=== PATIENT | female | born 1980 | race African-American/Black ===

== ENCOUNTER 2019-08-02 18:03 | Emergency (ER) | payer SELFPAY ==
[~2019-08-02] VITALS: Ht 154.9 cm; Wt 100.0 kg
[2019-08-02 18:17] VITALS: BP 130/76; Ht 154.9 cm; Wt 100.0 kg
[2019-08-02] MEDS ORDERED: GLUCOPHAGE1000 MG PO ×2 (18:18→19:25)
[2019-08-02] MEDS ORDERED: INSULIN SQ (18:19)
[2019-08-02] MEDS ORDERED: HUMULIN 70100 UNIT/1 (18:20)
[2019-08-02] MEDS ORDERED: HUMULIN 70100 UNIT/1 SC (19:25)
== END 2019-08-02 19:39 | disposition home or self-care (01) ==
LOC: D.ER 18:03
DX: E11.9 Type 2 diabetes mellitus without complications (principal)

== ENCOUNTER 2019-08-11 10:26 | Emergency (ER) | payer MEDICAID ==
[~2019-08-11] VITALS: Ht 154.9 cm; Wt 100.0 kg
[~2019-08-11 10:26] MED LIST: GLUCOPHAGE1000 MG PO; HUMULIN 70100 UNIT/1; HUMULIN 70100 UNIT/1 SC; INSULIN SQ
[2019-08-11 10:28] VITALS: BP 144/74; Ht 154.9 cm; Wt 100.0 kg
[2019-08-11 11:34] LABS: BASOPHILS 0.1 % (0-2); HEMATOCRIT 37.7 % (36.0-48.0); HEMOGLOBIN 11.6 g/dL (12-16); IMMATURE GRANULOCYTES 0.6 % (0-5); LYMPHOCYTES 14.8 % (15-50); MCH 23.3 pg (26.0-34.0); MCHC 30.8 g/dL (31.0-37.0); MCV 75.9 fL (80.0-100.0); MEAN PLATELET VOLUME 9.3 fL (7.4-10.4); MONOCYTES 3.9 % (2-11); NEUTROPHILS 70.6 % (40-80); PLATELET COUNT 397 10x3/uL (130-400); RBC 4.97 10x6/uL (4.00-5.40); RDW 17.1 % (11.5-14.5); WBC 9.5 10x3/uL (4.8-10.8)
[2019-08-11 11:46] LABS: CALC OSMOLALITY 274 mosm/kg (275-300); CALCIUM 9.5 mg/dL (8.5-10.1); CARBON DIOXIDE 26.1 mmol/L (21.0-32.0); CHLORIDE - SERUM 100 mmol/L (98-107); CREATININE - SERUM 0.7 mg/dL (0.6-1.3); GLUCOSE 218 mg/dL (74-106); POTASSIUM - SERUM 4.1 mmol/L (3.5-5.1); SODIUM 135 mmol/L (136-145); UREA NITROGEN 8 mg/dL (7-18); eGFR NON AFRICAN AMERICAN > 90 mL/min (90-120)
[2019-08-11 11:55] LABS: ALBUMIN 4.2 g/dL (3.4-5.0); ALKALINE PHOSPHATASE 208 U/L (46-116); ALT (SGPT) 25 U/L (10-68); BILIRUBIN - TOTAL 0.45 mg/dL (0.2-1.3); PRO BNP 13 pg/mL (0-125); PROTEIN - SERUM 8.5 g/dL (6.4-8.2)
[2019-08-11] MEDS ORDERED: HUMULIN R100 U/ML SC (12:32)
== END 2019-08-11 12:50 | disposition home or self-care (01) ==
LOC: D.ER 10:26
PROVIDERS: Family Medicine
DX: M79.605 Pain in left leg (principal); M25.472 Effusion, left ankle; E11.9 Type 2 diabetes mellitus without complications

== ENCOUNTER 2019-09-03 15:05 | Inpatient (IN) | payer SELFPAY ==
[~2019-09-03] VITALS: Ht 154.9 cm; Wt 101.8 kg
[~2019-09-03 15:05] MED LIST changes: +HUMULIN R100 U/ML SC
--- NOTE | 2019-09-03 15:19 | NUR ---
FSBS= 390 MG/SL
[2019-09-03 15:47] LABS: BASOPHILS 0.1 % (0-2); EOSINOPHILS 9.2 % (0-7); HEMATOCRIT 39.2 % (36.0-48.0); HEMOGLOBIN 12.1 g/dL (12-16); IMMATURE GRANULOCYTES 0.8 % (0-5); LYMPHOCYTES 8.2 % (15-50); MCH 23.4 pg (26.0-34.0); MCHC 30.9 g/dL (31.0-37.0); MCV 75.7 fL (80.0-100.0); MEAN PLATELET VOLUME 10.1 fL (7.4-10.4); MONOCYTES 5.9 % (2-11); NEUTROPHILS 75.8 % (40-80); PLATELET COUNT 391 10x3/uL (130-400); RBC 5.18 10x6/uL (4.00-5.40); RDW 17.2 % (11.5-14.5); WBC 14.3 10x3/uL (4.8-10.8)
--- NOTE | 2019-09-03 16:56 | NUR ---
URINE SPECIMEN OBTAINED, LABELED AT BS AND SENT TO LAB
[2019-09-03 17:24] LABS: APPEARANCE CLEAR (CLEAR); COLOR YELLOW (YELLOW)
[2019-09-03 17:32] LABS: SPECIFIC GRAVITY 1.025 (1.005-1.020)
[2019-09-03 17:37] LABS: BILIRUBIN NEGATIVE (NEGATIVE); GLUCOSE 1000 mg/dL (NEGATIVE); KETONE LARGE mg/dL (NEGATIVE); NITRITE NEGATIVE (NEGATIVE); PROTEIN TRACE mg/dL (NEGATIVE); UROBILINOGEN NORMAL (NORMAL)
--- NOTE | 2019-09-03 18:11 | NUR ---
RT HERE TO OBTAIN ABG'S
--- NOTE | 2019-09-03 18:36 | NUR ---
PT SITTING IN ROOM. NO DISTRESS NOTED. DENIES PAIN OR NEEDS AT THIS TIME.
[2019-09-03 19:13] LABS: CALC OSMOLALITY 279 mosm/kg (275-300); CALCIUM 9.8 mg/dL (8.5-10.1); CARBON DIOXIDE 10.9 mmol/L (21.0-32.0); CHLORIDE - SERUM 100 mmol/L (98-107); CREATININE - SERUM 0.8 mg/dL (0.6-1.3); POTASSIUM - SERUM 4.4 mmol/L (3.5-5.1); SODIUM 133 mmol/L (136-145); UREA NITROGEN 7 mg/dL (7-18); eGFR NON AFRICAN AMERICAN 85 mL/min (90-120)
[2019-09-03 19:15] LABS: GLUCOSE 382 mg/dL (74-106)
[2019-09-03 19:19] LABS: ALKALINE PHOSPHATASE 188 U/L (46-116); ALT (SGPT) 29 U/L (10-68); BILIRUBIN - TOTAL 0.59 mg/dL (0.2-1.3); PROTEIN - SERUM 8.9 g/dL (6.4-8.2)
--- NOTE | 2019-09-03 19:42 | NUR ---
PT PROVIDED WITH WATER.
[2019-09-03 20:21] LABS: CALC OSMOLALITY 284 mosm/kg (275-300); CALCIUM 9.6 mg/dL (8.5-10.1); CARBON DIOXIDE 10.2 mmol/L (21.0-32.0); CHLORIDE - SERUM 102 mmol/L (98-107); CREATININE - SERUM 0.7 mg/dL (0.6-1.3); GLUCOSE 360 mg/dL (74-106); POTASSIUM - SERUM 4.8 mmol/L (3.5-5.1); SODIUM 136 mmol/L (136-145); UREA NITROGEN 7 mg/dL (7-18); eGFR NON AFRICAN AMERICAN > 90 mL/min (90-120)
--- NOTE | 2019-09-03 20:39 | NUR ---
REPORT CALLED TO SERENA GALVAN. ROOM STILL DIRTY. NURSE TO CALL WHEN ROOM IS READY FOR PATIENT.
--- NOTE | 2019-09-03 21:50 | NUR ---
PT UP TO RESTROOM.
--- NOTE | 2019-09-03 21:59 | NUR ---
ICU CALLED, ROOM IS CLEAN AND READY FOR PT.
--- NOTE | 2019-09-03 22:30 | NUR ---
PT ARRIVED TO UNIT. CONNECTED TO ICU MONITOR. VSS. NO VISIBLE SIGNS OF DISTRESS NOTED. WILL CONTINUE TO MONITOR
[2019-09-03 23:00] VITALS: BP 129/85
--- NOTE | 2019-09-03 23:30 | NUR ---
ADMISSION ASSESSMENT COMPLETED. INSULIN DRIP STARTED AND FLOW SHEET STARTED. NO COMPLAINTS NOTED AT THIS TIME. VSS. WILL CONTINUE TO MONITOR
[2019-09-03 23:37] VITALS: BP 142/88; BMI 40.5
[2019-09-04] VITALS (25 sets, daily range): BP systolic 112–144; BP diastolic 32–97; Ht 154.9 cm; Wt 101.8 kg
--- NOTE | 2019-09-04 01:00 | NUR ---
PT RESTING IN BED. ATTEMPTING TO SLEEP. NO VISIBLE SIGNS OF DISTRESS NOTED. VSS. WILL CONTINUE TO MONITOR
--- NOTE | 2019-09-04 03:00 | NUR ---
PT RESTING IN BED. REASSESSMENT COMPLETED. NO COMPLAINTS NOTED AT THIS TIME. VSS. PT ON INSULIN DRIP TOLERATING WELL. WILL CONTINUE TO MONITOR
[2019-09-04 04:46] LABS: CHLORIDE - SERUM 108 mmol/L (98-107); CREATININE - SERUM 0.7 mg/dL (0.6-1.3); SODIUM 141 mmol/L (136-145); eGFR NON AFRICAN AMERICAN > 90 mL/min (90-120)
[2019-09-04 04:55] LABS: CALC OSMOLALITY 278 mosm/kg (275-300); CARBON DIOXIDE 18.7 mmol/L (21.0-32.0); GLUCOSE 115 mg/dL (74-106); POTASSIUM - SERUM 3.4 mmol/L (3.5-5.1); UREA NITROGEN 5 mg/dL (7-18)
--- NOTE | 2019-09-04 05:00 | NUR ---
PT RESTING IN BED. NO VISIBLE SIGNS OF DISTRESS NOTED AT THIS TIME. VSS. WILL CONTINUE TO MONITOR
[2019-09-04 05:43] LABS: KETONE - SERUM SMALL mg/dL (NEGATIVE)
--- NOTE | 2019-09-04 11:20 | NUR ---
patient blodo glucose 193. liliane has called carolyn for 2nd time to see about IV access. patient on saline lock due to 3rd infiltrated IV. i tried 2 times as well as kathy jesus.
[2019-09-04 11:26] LABS: UDS - AMPHET NEGATIVE QUAL (NEGATIVE); UDS - BARB NEGATIVE QUAL (NEGATIVE); UDS - BENZO NEGATIVE QUAL (NEGATIVE); UDS - COCAINE NEGATIVE QUAL (NEGATIVE); UDS - OPIATE NEGATIVE QUAL (NEGATIVE); UDS - PCP NEGATIVE QUAL (NEGATIVE); UDS - THC NEGATIVE QUAL (NEGATIVE)
[2019-09-04 12:44] LABS: CALC OSMOLALITY 283 mosm/kg (275-300); CARBON DIOXIDE 20.2 mmol/L (21.0-32.0); CHLORIDE - SERUM 107 mmol/L (98-107); CREATININE - SERUM 0.8 mg/dL (0.6-1.3); GLUCOSE 209 mg/dL (74-106); POTASSIUM - SERUM 3.8 mmol/L (3.5-5.1); SODIUM 141 mmol/L (136-145); UREA NITROGEN 5 mg/dL (7-18); eGFR NON AFRICAN AMERICAN 85 mL/min (90-120)
--- NOTE | 2019-09-04 12:51 | NUR ---
JERMAN AT BEDSIDE TO GET IV ACCESS
[2019-09-04 13:30] LABS: % SATURATION 12 % (15-55); IRON 40 ug/dl (35-150); TOTAL IRON BIND CAPACITY 325 ug/dl (260-445); UNSAT IRON BIND CAPACITY 285 ug/dl (150-375)
--- NOTE | 2019-09-04 16:29 | NUR ---
report given to kathy
[2019-09-04 16:43] LABS: CALC OSMOLALITY 278 mosm/kg (275-300); CARBON DIOXIDE 15.9 mmol/L (21.0-32.0); CHLORIDE - SERUM 110 mmol/L (98-107); CREATININE - SERUM 0.5 mg/dL (0.6-1.3); GLUCOSE 124 mg/dL (74-106); SODIUM 141 mmol/L (136-145); UREA NITROGEN 5 mg/dL (7-18); eGFR NON AFRICAN AMERICAN > 90 mL/min (90-120)
--- NOTE | 2019-09-04 17:30 | NUR ---
FSBS 97, ADJUSTED INSULIN PER PROTOCOL. PT RESTING IN BED, VSS AND WNL. DENIES ANY NEEDS AT THIS TIME, WILL CONT TO FOLLOW POC
--- NOTE | 2019-09-04 19:00 | NUR ---
PT REPORT RECEIVED FROM DAY SHIFT NURSE. NO COMPLAINTS NOTED AT THIS TIME. VSS. PT ON INSULIN DRIP. SHIFT ASSESSMENT COMPLETED. WILL CONTINUE TO MONITOR
[2019-09-04 20:09] LABS: CALC OSMOLALITY 278 mosm/kg (275-300); CALCIUM 8.6 mg/dL (8.5-10.1); CARBON DIOXIDE 17.3 mmol/L (21.0-32.0); CHLORIDE - SERUM 108 mmol/L (98-107); GLUCOSE 115 mg/dL (74-106); POTASSIUM - SERUM 3.6 mmol/L (3.5-5.1); SODIUM 141 mmol/L (136-145); UREA NITROGEN 5 mg/dL (7-18)
[2019-09-04 20:11] LABS: CREATININE - SERUM 0.7 mg/dL (0.6-1.3)
[2019-09-04 20:12] LABS: eGFR NON AFRICAN AMERICAN > 90 mL/min (90-120)
--- NOTE | 2019-09-04 21:00 | NUR ---
PT RESTING IN BED. NO COMPLAINTS NOTED AT THIS TIME. NO VISIBLE SIGNS OF DISTRESS NOTED. VSS. WILL CONTINUE TO MONITOR
--- NOTE | 2019-09-04 23:00 | NUR ---
PT RESTING IN BED. NO COMPLAINTS NOTED AT THIS TIME. PT TRYING TO GET SOME SLEEP. REASSESSMENT COMPLETED. NO SIGNS OF DISTRESS NOTED. WILL CONTINUE TO MONITOR
[2019-09-05] VITALS (24 sets, daily range): BP systolic 104–148; BP diastolic 58–109
--- NOTE | 2019-09-05 01:00 | NUR ---
PT RESTING IN BED. NO COMPLAINTS NOTED AT THIS TIME. VSS. WILL CONTINUE TO MONITOR
--- NOTE | 2019-09-05 03:00 | NUR ---
PT REASSESSMENT COMPLETED. PT TOLERATED WELL. NO VISIBLE SIGNS OF DISTRESS NOTED. VSS. WILL CONTINUE TO MONITOR
[2019-09-05 03:58] LABS: BASOPHILS 0.2 % (0-2); EOSINOPHILS 12.3 % (0-7); HEMATOCRIT 35.9 % (36.0-48.0); HEMOGLOBIN 11.1 g/dL (12-16); IMMATURE GRANULOCYTES 0.8 % (0-5); LYMPHOCYTES 14.6 % (15-50); MCHC 30.9 g/dL (31.0-37.0); MCV 74.5 fL (80.0-100.0); MEAN PLATELET VOLUME 9.8 fL (7.4-10.4); MONOCYTES 7.9 % (2-11); NEUTROPHILS 64.2 % (40-80); PLATELET COUNT 355 10x3/uL (130-400); RBC 4.82 10x6/uL (4.00-5.40); RDW 17.3 % (11.5-14.5)
[2019-09-05 04:12] LABS: WBC 8.7 10x3/uL (4.8-10.8)
[2019-09-05 04:14] LABS: CALC OSMOLALITY 278 mosm/kg (275-300); CALCIUM 8.7 mg/dL (8.5-10.1); CARBON DIOXIDE 21.6 mmol/L (21.0-32.0); CHLORIDE - SERUM 108 mmol/L (98-107); CREATININE - SERUM 0.7 mg/dL (0.6-1.3); GLUCOSE 147 mg/dL (74-106); MAGNESIUM - SERUM 1.6 mg/dL (1.8-2.4); PHOSPHOROUS 2.1 mg/dL (2.5-4.9); POTASSIUM - SERUM 3.4 mmol/L (3.5-5.1); SODIUM 140 mmol/L (136-145); UREA NITROGEN 4 mg/dL (7-18); eGFR NON AFRICAN AMERICAN > 90 mL/min (90-120)
[2019-09-05 04:34] LABS: KETONE - SERUM SMALL mg/dL (NEGATIVE)
--- NOTE | 2019-09-05 05:00 | NUR ---
PT GAVE HERSELF A CHG BATH. TOLERATED WELL. NO VISIBLE SIGNS OF DISTRESS NOTED AT THIS TIME. WILL CONTINUE TO MONITOR
--- NOTE | 2019-09-05 07:29 | NUR ---
PAIENT ALERT AND ORIENTED. AMBULATED TO AND FROM BED ALONE TO BEDSIDE COMMODE. DENIES PAIN AND NEEDS. INSULIN DRIP INFUSING. CALL LIGHT WITHIN REACH. BED LOW AND LOCKED. SEE ASSESSMNET. ORAL CARE PROVIDED. STATED SHE GAVE HERSELF A CHG BATH LAST NIGHT. PATIENT STATED SHE DOES NOT CHECK HER BLOOD SUGARS AT HER HOME BECAUSE SHE DOES NOT HAVE HER UTILITIES. PATIENT STATED SHE DOESNT GET HER CHECK UNTIL OCTOBER. SPOKE WITH PATT
--- NOTE | 2019-09-05 07:44 | NUR ---
Nutrition follow-up: Pt continues NPO due to insulin drip Labs reviewed Wt: 216# RDN following pts diet advancement and tolerance.
--- NOTE | 2019-09-05 10:20 | NUR ---
FAMILY MEMBER CALLED--FRANCIE AND WAS TRANSFERRED INTO PATIENT ROOM
[2019-09-05 13:29] LABS: CALC OSMOLALITY 279 mosm/kg (275-300); CALCIUM 9.1 mg/dL (8.5-10.1); CARBON DIOXIDE 21.4 mmol/L (21.0-32.0); CHLORIDE - SERUM 108 mmol/L (98-107); CREATININE - SERUM 0.6 mg/dL (0.6-1.3); GLUCOSE 133 mg/dL (74-106); POTASSIUM - SERUM 3.9 mmol/L (3.5-5.1); SODIUM 141 mmol/L (136-145); UREA NITROGEN 3 mg/dL (7-18); eGFR NON AFRICAN AMERICAN > 90 mL/min (90-120)
--- NOTE | 2019-09-05 13:30 | NUR ---
DR LOPEZ AT BEDSIDE
--- NOTE | 2019-09-05 13:49 | MORECARE ---
CASE MANAGEMENT DISCHARGE SUMMARY PATIENT: SHELLY MERINO UNIT: [id number] ADM DATE: 09/03/19 AGE: 38 : 80 SEX: F ROOM/BED: D.2302 AUTHOR: MARIA GUADALUPE LOWERY PHYSICIAN: REFERRING PHYSICIAN: REJI LOPEZ MD DATE OF SERVICE: 09/05/19 Discharge Plan Patient Name: SHELLY MERINO [facility] [facility] 1980 Planned Disposition: Home or Self Care Anticipated Discharge Date: Discharge Date: Expected LOS: Initial Reviewer: [email or web address] Initial Review Date: 09/04/2019 Generated: 09/05/19 2:49 pm DCPIA - Discharge Planning Initial Assessment Updated by [email or web address]: Carla Zuñiga on 09/05/19 1:46 pm * Is the patient Alert and Oriented? Yes * How many steps to enter\exit or inside your home? * PCP NO PCP * Pharmacy [facility] * Preadmission Environment Chcf * Facility Name [facility] * ADLs Independent * Equipment None * List name and contact numbers for known caregivers / representatives who currently or will assist patient after discharge: [facility] - [phone] * Verbal permission to speak to the caregivers and representatives has been obtained from the patient. Yes * Community resources currently utilized None * Additional services required to return to the preadmission environment? No * Can the patient safely return to the preadmission environment? Yes * Has this patient been hospitalized within the prior 30 days at any hospital? No Patient Name: SHELLY MERINO Page [id number] at 1349 All edits/amendments must be made on the electronic document DICTATION DATE: 09/05/19 1349 DRAFTER ASSISTANT: GIDEON 09/05/19 1349 RPT#: [id number] DC DATE: STATUS: ADM IN [facility] [address] [place] [address] END OF REPORT
--- NOTE | 2019-09-05 14:07 | MORECARE ---
CASE MANAGEMENT DISCHARGE SUMMARY PATIENT: SHELLY MERINO UNIT: [id number] ADM DATE: 09/03/19 AGE: 38 : 80 SEX: F ROOM/BED: D.2302 AUTHOR: SEBASTIÁN,DOC PHYSICIAN: REFERRING PHYSICIAN: REJI LOPEZ MD DATE OF SERVICE: 09/05/19 Discharge Plan Patient Name: SHELLY MERINO Facility: [facility]:[place] : 1980 Planned Disposition: Home or Self Care Anticipated Discharge Date: Discharge Date: Expected LOS: Initial Reviewer: [email or web address] Initial Review Date: 09/04/2019 Generated: 09/05/19 3:06 pm Comments DCP- Discharge Planning Updated by [email or web address]: Carla Zuñiga on 09/05/19 1:[address] LATE ENTRY 09/04/19 @ 1215 Patient Name: SHELLY MERINO Admission Status: ER Accout number: [id number] Admission Date: 09-03-2019 : 1980 Admission Diagnosis:TYPE 2 DIABETES MELLITUS WITH KETOACIDOSIS WITHOUT COMA Attending: REJI LOPEZ Current LOS: 2 Anticipated DC Date: Planned Disposition: Home or Self Care Primary Insurance: UNINSURED DISCOUNT PLAN Discharge Planning Comments: CM met with patient to complete initial dc planning assessment. CM educated patient on the CM role and verbal consent given by patient to complete assessment. Patient lives at home a [facility] ([facility]) where she is independent with her care. At discharge patient plans to return to fci and feels this is a safe discharge. CM discussed availability of home health, rehab services, and medical equipment. CM discussed with patient regarding diabetic testing supplies and insulin. Patient states that she doesn't have any money to get supplies or insulin with. CM called [facility] and spoke with Zuleyka the patients Counselor. Zuleyka stated they have reached out to [facility] and CM and all they was able to obtain was Metaformin for patients blood sugar. CM spoke with patient regarding Medicaid she stated that it is suppose to start Sep 21. Patient also stated that is suppose to start getting her disability in October. THEODORA spoke with Walter in [employer] and he stated that the patient needs to bring in an award letter from Medicaid and Medicare/ Disability. CM will continue to follow and will assist as needed with dc plans/needs. Substation Mechanic: Carla Zuñiga DCPIA - Discharge Planning Initial Assessment Updated by [email or web address]: Carla Zuñiga on 09/05/19 1:46 pm * Is the patient Alert and Oriented? Yes * How many steps to enter\exit or inside your home? * PCP NO PCP * [facility] * Preadmission Environment Chcf * Facility Name [facility] * ADLs Independent * Equipment None * List name and contact numbers for known caregivers / representatives who currently or will assist patient after discharge: [facility] - [phone] * Verbal permission to speak to the caregivers and representatives has been obtained from the patient. Yes * Community resources currently utilized None * Additional services required to return to the preadmission environment? No * Can the patient safely return to the preadmission environment? Yes * Has this patient been hospitalized within the prior 30 days at any hospital? No Last DP export: 09/05/19 12:49 Patient Name: SHELLY MERINO Page [phone] at 1407 All edits/amendments must be made on the electronic document DICTATION DATE: 09/05/191405 IT ADMINISTRATOR: GIDEON 09/05/191405 RPT#: [id number] DC DATE: STATUS: ADM IN [facility] [address] [place] [address] END OF REPORT
--- NOTE | 2019-09-05 14:31 | NUR ---
PATIENT BACK FROM SURGERY
--- NOTE | 2019-09-05 14:34 | NUR ---
PATIENT ARRIVED TO UNIT WITHOUT PINK THING THAT PLUGS INTO BOX OF MONITOR. SURGERY STATED THEY WILL LOOK FOR IT
--- NOTE | 2019-09-05 14:35 | NUR ---
REPLACED PINK THING WITH ONE FROM ROOM 5 BECAUSE PATIENT IS PACEMAKER SURGERY PATIENT. PACED SETTINGS ON MONITOR ON. 80 HR. NO REPORT RECIEVED. ANESTHESIA STATED THEY THINK IT IS PACED AT 80.
[2019-09-05 16:58] LABS: CALCIUM 8.4 mg/dL (8.5-10.1); CHLORIDE - SERUM 109 mmol/L (98-107); CREATININE - SERUM 0.6 mg/dL (0.6-1.3); POTASSIUM - SERUM 4.4 mmol/L (3.5-5.1); SODIUM 139 mmol/L (136-145); eGFR NON AFRICAN AMERICAN > 90 mL/min (90-120)
--- NOTE | 2019-09-05 16:58 | NUR ---
patient has tray. no distress.
[2019-09-05 17:30] LABS: CALC OSMOLALITY 279 mosm/kg (275-300); CARBON DIOXIDE 15.8 mmol/L (21.0-32.0); GLUCOSE 207 mg/dL (74-106); UREA NITROGEN 2 mg/dL (7-18)
--- NOTE | 2019-09-05 19:00 | NUR ---
ASSESSMENT COMPLETED. LAYING IN BED WATCHING TV. DENIES ANY NEEDS OR COMPLAINTS. LEFT UPPER ARM MIDLINE PATENT WITH DRSG CDI. CONT INSULIN DRIP PER ORDERS
--- NOTE | 2019-09-05 20:30 | NUR ---
SPOKE WITH SELENE SAUCEDO APRN, NEW ORDERS TO CONT TO GET BMP Q 4 HOURS
[2019-09-05 20:45] LABS: CALCIUM 8.9 mg/dL (8.5-10.1); CHLORIDE - SERUM 107 mmol/L (98-107); GLUCOSE 157 mg/dL (74-106); SODIUM 140 mmol/L (136-145); UREA NITROGEN 5 mg/dL (7-18); eGFR NON AFRICAN AMERICAN 85 mL/min (90-120)
[2019-09-05 20:46] LABS: CALC OSMOLALITY 278 mosm/kg (275-300); CARBON DIOXIDE 21.3 mmol/L (21.0-32.0); CREATININE - SERUM 0.8 mg/dL (0.6-1.3); POTASSIUM - SERUM 3.7 mmol/L (3.5-5.1)
--- NOTE | 2019-09-05 21:00 | NUR ---
PATIENT DENIES COMPLAINTS OR NEEDS. CONT MONITORING BLOOD SUGAR ONCE A HOUR.
--- NOTE | 2019-09-05 21:30 | NUR ---
SPOKE WITH SELENE SAUCEDO APRN CONCERNING BLOOD GLUCOSE WENT FROM 164 TO 108 WITH A 15% DROP FOR 2 TIMES IN A ROW. NO NEW ORDERS AT THIS TIME BUT SAID TO CALL BACK IF IT HAPPENS AGAIN. GIVEN PATIENT AN HS SNACK AND CONSUMED 100%. ADJUSTING INSULIN DRIP PER PROTOCOL
--- NOTE | 2019-09-05 23:00 | NUR ---
RE-ASSESSMENT COMPLETED. NO CHANGES SINCE LAST ASSESSMENT. PT CONT TO DENY NEEDS. CALL LIGHT IN REACH
[2019-09-06] VITALS (19 sets, daily range): BP systolic 113–156; BP diastolic 48–95
--- NOTE | 2019-09-06 01:00 | NUR ---
DENIES COMPLAINTS OR NEEDS. LAYING IN BED. CALL LIGHT IN REACH.
[2019-09-06 01:23] LABS: CALC OSMOLALITY 278 mosm/kg (275-300); CALCIUM 8.5 mg/dL (8.5-10.1); CARBON DIOXIDE 21.5 mmol/L (21.0-32.0); CHLORIDE - SERUM 109 mmol/L (98-107); CREATININE - SERUM 0.7 mg/dL (0.6-1.3); GLUCOSE 144 mg/dL (74-106); POTASSIUM - SERUM 3.6 mmol/L (3.5-5.1); SODIUM 140 mmol/L (136-145); eGFR NON AFRICAN AMERICAN > 90 mL/min (90-120)
[2019-09-06 01:24] LABS: UREA NITROGEN 3 mg/dL (7-18)
--- NOTE | 2019-09-06 03:00 | NUR ---
RE-ASSESSMENT COMPLETED. DENIES ANY NEEDS. NO CHANGES SINCE LAST ASSESSMENT
[2019-09-06 03:50] LABS: KETONE - SERUM NEGATIVE (NEGATIVE)
[2019-09-06 03:52] LABS: BASOPHILS 0.1 % (0-2); EOSINOPHILS 8.8 % (0-7); HEMATOCRIT 32.4 % (36.0-48.0); HEMOGLOBIN 10.3 g/dL (12-16); IMMATURE GRANULOCYTES 0.7 % (0-5); LYMPHOCYTES 28.6 % (15-50); MCH 24.1 pg (26.0-34.0); MCHC 31.8 g/dL (31.0-37.0); MCV 75.7 fL (80.0-100.0); MONOCYTES 10.7 % (2-11); NEUTROPHILS 51.1 % (40-80); RBC 4.28 10x6/uL (4.00-5.40); RDW 18.1 % (11.5-14.5); WBC 6.9 10x3/uL (4.8-10.8)
[2019-09-06 03:55] LABS: MEAN PLATELET VOLUME 9.6 fL (7.4-10.4); PLATELET COUNT 348 10x3/uL (130-400)
[2019-09-06 04:02] LABS: CALC OSMOLALITY 277 mosm/kg (275-300); CALCIUM 8.8 mg/dL (8.5-10.1); CARBON DIOXIDE 23.1 mmol/L (21.0-32.0); CHLORIDE - SERUM 110 mmol/L (98-107); CREATININE - SERUM 0.6 mg/dL (0.6-1.3); GLUCOSE 98 mg/dL (74-106); MAGNESIUM - SERUM 1.9 mg/dL (1.8-2.4); POTASSIUM - SERUM 3.6 mmol/L (3.5-5.1); SODIUM 141 mmol/L (136-145); UREA NITROGEN 3 mg/dL (7-18); eGFR NON AFRICAN AMERICAN > 90 mL/min (90-120)
--- NOTE | 2019-09-06 04:52 | NUR ---
SPUTUM CULTURE COLLECTED AND SENT TO LAB PER ORDERS
--- NOTE | 2019-09-06 05:00 | NUR ---
LAYING IN BED. CHG BATH WITH COMPLETE LINEN CHANGE. PATIENT COMPLETED BATH WITH MINIMAL HELP. DENIES ANY OTHER NEEDS.
--- NOTE | 2019-09-06 07:00 | NUR ---
BEDSIDE REPORT RECEIVED. PT DENIES ANY NEEDS OR DISTRESS AT THIS TIME. PT IN BED WATCHING TV. ASSESSMENT COMPLETE PER FLOWSHEET, SEE FLOWSHEET FOR INFORMATION. WILL CONT TO MARICARMEN.
--- NOTE | 2019-09-06 09:00 | NUR ---
PT C/O NEEDING TO HAVE BM, INFORMED HE COULD USE A BEDPAN AND PT SAID "I'M NOT USING THAT DAMN THING, I'LL JUST SHIT IN THE BED THEN" PT REFUSED TO USE BEDPAN, STATED HE WOULD ONLY USE A BSC. GOT PT A BSC, PT FAMILY ASSISTED PT TO BSC. VSS. WILL CONT TO MONITOR.
--- NOTE | 2019-09-06 09:00 | NUR ---
PT CALL LIGHT ANSWERED, PT STATED "MY ANKLE BRACELET IS GOING OFF, CAN YOU PLEASE CALL [employer] AND TELL THEM I'M HERE?" [employer] CALLED AND GIVEN UPDATE, [employer] SAID THEY WOULD SEND SOMEONE BY LATER TO CHECK ON ANKLE BRACELET AND BRING CLOTHES. VSS. WILL CONT TO MONITOR.
[2019-09-06 09:08] LABS: CALC OSMOLALITY 278 mosm/kg (275-300); CALCIUM 8.6 mg/dL (8.5-10.1); CARBON DIOXIDE 23.7 mmol/L (21.0-32.0); CHLORIDE - SERUM 110 mmol/L (98-107); CREATININE - SERUM 0.6 mg/dL (0.6-1.3); GLUCOSE 106 mg/dL (74-106); POTASSIUM - SERUM 3.6 mmol/L (3.5-5.1); SODIUM 142 mmol/L (136-145); UREA NITROGEN 2 mg/dL (7-18); eGFR NON AFRICAN AMERICAN > 90 mL/min (90-120)
--- NOTE | 2019-09-06 09:56 | NUR ---
SPOKE WITH , INSULIN DRIP IS TURNED OFF. NEW ORDERS RECEIVED. WILL CONT TO MONITOR.
--- NOTE | 2019-09-06 11:00 | NUR ---
REASSESSMENT COMPLETED PER FLOWSHEET, SEE FLOWSHEET FOR INFORMATION. PT IN BED RESTING WITH EYES CLOSED. NO NEEDS OR DISTRESS NOTED AT THIS TIME. VSS. WILL CONT TO MONITOR.
--- NOTE | 2019-09-06 14:16 | NUR ---
UPDATED ON FSBS LEVELS. NEW ORDERS RECEIVED. WILL CONT TO MONITOR.
--- NOTE | 2019-09-06 15:00 | NUR ---
REASSESSMENT COMPLETED PER FLOWSHEET, SEE FLOWSHEET FOR INFORMATION. MONITORING FSBS. PT DENIES ANY NEEDS OR DISTRESS AT THIS TIME. VSS. WILL CONT TO MONITOR.
--- NOTE | 2019-09-06 17:00 | NUR ---
PT RESTING IN BED WITH EYES CLOSED. PT DENIES ANY NEEDS OR DISTRESS AT THIS TIME. VSS. WILL CONT TO MONITOR.
--- NOTE | 2019-09-06 17:46 | NUR ---
PT AT BSC. PT DECLINES ANY NEEDS OR DISTRESS AT THIS TIME. VSS. WILL CONT TO MONITOR.
--- NOTE | 2019-09-06 19:01 | NUR ---
REPORT CALLED. VSS. WILL CONT TO MONITOR.
--- NOTE | 2019-09-06 19:19 | NUR ---
RECEIVED PT TO ROOM. A&O X4. RR EVEN AND UNLABORED. DENIES NEEDS AT THIS TIME. PT ABLE TO AMBULATE WITHOUT ASSIST. NO S/S OF DISTRESS NOTED. EDUCATED USE OF CALL LIGHT FOR ASSISTANCE. SRX2. CALL LIGHT IN REACH. WILL CTM.
--- NOTE | 2019-09-07 00:20 | NUR ---
PT C/O RIGHT JAW PAIN. NO SWELLING NOTED. DENIES ANY OTHER NEW ISSUES. PROVIDED TYLENOL WILL CTM.
[2019-09-07 05:37] LABS: BASOPHILS 0.4 % (0-2); EOSINOPHILS 12.8 % (0-7); HEMOGLOBIN 10.7 g/dL (12-16); IMMATURE GRANULOCYTES 1.3 % (0-5); LYMPHOCYTES 18.1 % (15-50); MCHC 30.6 g/dL (31.0-37.0); MCV 75.1 fL (80.0-100.0); MEAN PLATELET VOLUME 10.2 fL (7.4-10.4); NEUTROPHILS 57.4 % (40-80); PLATELET COUNT 366 10x3/uL (130-400); RBC 4.66 10x6/uL (4.00-5.40); RDW 18.7 % (11.5-14.5); WBC 8.4 10x3/uL (4.8-10.8)
[2019-09-07 05:56] LABS: MAGNESIUM - SERUM 1.9 mg/dL (1.8-2.4)
[2019-09-07 05:57] LABS: PHOSPHOROUS 4.4 mg/dL (2.5-4.9)
--- NOTE | 2019-09-07 07:35 | NUR ---
RECIEVED REPORT. RESTING IN BED WITH EYES CLOSED. RESPIRATIONS EVEN AND REGULAR. CONTINUE PLAN OF CARE AND SAFETY PRECAUTIONS.
[2019-09-07 09:14] VITALS: BP 136/90
--- NOTE | 2019-09-07 12:12 | NUR ---
ALERT AND ORIENTED X4. SHOWER AND LINEN CHANGE COMPLETE. UP AMBULATING IN PEREZ. GAIT STEADY. DENIES ANY NEEDS AT THIS TIME. CONTINUE PLAN OF CARE AND SAFETY PRECAUTIONS.
[2019-09-07 12:47] VITALS: BP 161/96
[2019-09-07 18:21] VITALS: BP 153/92
--- NOTE | 2019-09-07 18:25 | NUR ---
ALERT AND ORIENTED X4. SITTING UP IN BED WATCHING TV. DENIES ANY NEEDS. DENIES SOB OR PAIN. CONTINUE PLAN OF CARE AND SAFETY PRECAUTIONS.
[2019-09-07 20:00] VITALS: BP 145/81
[2019-09-08] VITALS: BP 107/65
[2019-09-08 04:00] VITALS: BP 134/72
[2019-09-08 04:23] LABS: BASOPHILS 0.4 % (0-2); EOSINOPHILS 11.1 % (0-7); HEMATOCRIT 34.7 % (36.0-48.0); HEMOGLOBIN 10.6 g/dL (12-16); IMMATURE GRANULOCYTES 0.9 % (0-5); MCHC 30.5 g/dL (31.0-37.0); MCV 75.4 fL (80.0-100.0); MEAN PLATELET VOLUME 9.8 fL (7.4-10.4); MONOCYTES 11.2 % (2-11); NEUTROPHILS 57.4 % (40-80); PLATELET COUNT 400 10x3/uL (130-400); RDW 18.7 % (11.5-14.5); WBC 8.2 10x3/uL (4.8-10.8)
[2019-09-08 04:46] LABS: MAGNESIUM - SERUM 1.9 mg/dL (1.8-2.4); PHOSPHOROUS 4.4 mg/dL (2.5-4.9)
--- NOTE | 2019-09-08 07:20 | NUR ---
RECIEVED REPORT. ALERT AND ORIENTED X4. SITTING UP IN BED. DENIES SOB OR PAIN. DENIES ANY NEEDS. CONTINUE PLAN OF CARE AND SAFETY PRECAUTIONS.
[2019-09-08 07:38] VITALS: BP 127/81
[2019-09-08 11:24] VITALS: BP 97/49
--- NOTE | 2019-09-08 13:28 | NUR ---
ALERT AND ORIENTED X4. SITTING UP IN BED. DENIES ANY NEEDS. CONTINUE PLAN OF CARE AND SAFETY PRECAUTIONS.
[2019-09-08 15:06] VITALS: BP 121/69
--- NOTE | 2019-09-08 16:33 | MORECARE ---
CASE MANAGEMENT DISCHARGE SUMMARY PATIENT: SHELLY MERINO UNIT: [id number] ADM DATE: 09/03/19 AGE: 38 : 80 SEX: F ROOM/BED: D.9967 AUTHOR: SEBASTIÁN,DOC PHYSICIAN: REFERRING PHYSICIAN: REJI LOPEZ MD DATE OF SERVICE: 09/08/19 Discharge Plan Patient Name: SHELLY MERINO Facility: [facility]:[place] : 1980 Planned Disposition: Home or Self Care Anticipated Discharge Date: 09/08/19 Discharge Date: Expected LOS: 5 Initial Reviewer: [email or web address] Initial Review Date: 09/04/2019 Generated: 09/08/19 5:32 pm DCP- Discharge Planning Updated by [email or web address]: Carla Zuñiga on 09/05/19 1:[address] LATE ENTRY 09/04/19 @ 1215 Patient Name: SHELLY MERINO Admission Status: ER Accout number: [id number] Admission Date: 09-03-2019 : 1980 Admission Diagnosis:TYPE 2 DIABETES MELLITUS WITH KETOACIDOSIS WITHOUT COMA Attending: REJI LOPEZ Current LOS: 2 Anticipated DC Date: Planned Disposition: Home or Self Care Primary Insurance: UNINSURED DISCOUNT PLAN Discharge Planning Comments: CM met with patient to complete initial dc planning assessment. CM educated patient on the CM role and verbal consent given by patient to complete assessment. Patient lives at home a intermediate ([facility]) where she is independent with her care. At discharge patient plans to return to intermediate and feels this is a safe discharge. CM discussed availability of home health, rehab services, and medical equipment. CM discussed with patient regarding diabetic testing supplies and insulin. Patient states that she doesn't have any money to get supplies or insulin with. CM called [facility] and spoke with Zuleyka the patients Counselor. Zuleyka stated they have reached out to [facility] and CM and all they was able to obtain was Metaformin for patients blood sugar. CM spoke with patient regarding Medicaid she stated that it is suppose to start Sep 21. Patient also stated that is suppose to start getting her disability in October. CM spoke with Walter in [employer] and he stated that the patient needs to bring in an award letter from Medicaid and Medicare/ Disability. CM will continue to follow and will assist as needed with dc plans/needs. Inventory Auditor: Carla Zuñiga DCPIA - Discharge Planning Initial Assessment Updated by [email or web address]: Carla Zuñiga on 09/05/19 1:46 pm * Is the patient Alert and Oriented? Yes * How many steps to enter\exit or inside your home? * PCP NO PCP * [facility] * Preadmission Environment Care Home * Facility Name [facility] * ADLs Independent * Equipment None * List name and contact numbers for known caregivers / representatives who currently or will assist patient after discharge: CAR[facility] [phone] * Verbal permission to speak to the caregivers and representatives has been obtained from the patient. Yes * Community resources currently utilized None * Additional services required to return to the preadmission environment? No * Can the patient safely return to the preadmission environment? Yes * Has this patient been hospitalized within the prior 30 days at any hospital? No Last DP export: 09/05/19 1:07 Patient Name: SHELLY MERINO Page [id number] at 1633 All edits/amendments must be made on the electronic document DICTATION DATE: 09/08/191631 TRUCK TRAILER FINAL INSPECTOR: GIDEON 09/08/191631 RPT#: [id number] DC DATE: STATUS: ADM IN [facility] [address] [place] [address] END OF REPORT
--- NOTE | 2019-09-08 16:40 | MORECARE ---
CASE MANAGEMENT DISCHARGE SUMMARY PATIENT: SHELLY MERINO UNIT: [id number] ADM DATE: 09/03/19 AGE: 38 : 80 SEX: F ROOM/BED: D.2047 AUTHOR: SEBASTIÁN,DOC PHYSICIAN: REFERRING PHYSICIAN: REJI LOPEZ MD DATE OF SERVICE: 09/08/19 Discharge Plan Patient Name: SHELLY MERINO Facility: [facility]:[place] : 1980 Planned Disposition: Home or Self Care Anticipated Discharge Date: 09/08/19 Discharge Date: Expected LOS: 5 Initial Reviewer: [email or web address] Initial Review Date: 09/04/2019 Generated: 09/08/19 5:40 pm Comments DCP- Discharge Planning Updated by [email or web address]: Lynda Song on 09/08/19 3:[address] Patient Name: SHELLY MERINO Encounter No: [id number] : 1980 Primary Insurance: UNINSURED DISCOUNT PLAN Anticipated DC Date: 09-08-2019 Planned Disposition: Home or Self Care External Planned Provider: [facility] DCP follow-up note: CM RECEIVED DISCHARGE ORDERS, MET WITH PT IN ROOM REGARDING DISCHARGE PLANNING AND NEEDS. CM DISCUSSED PT'S DIABETIC SUPPLIES. PT REPORTS SHE IS NOT BEEN TOLD IF [facility] IS GOING TO PROVIDE ANY OF HER SUPPLIES. PT DENIES HAVING ANY FUNDS, FRIENDS OR FAMILY TO ASSIST. PT REPORTS [facility] WILL PICK HER UP FOR DISCHARGE BACK TO THE FACILITY AT DISCHARGE. PT PROVIDED [facility] CONTACT NUMBER. THEODORA CALLED [facility], , SPOKE TO SHEREEN AND DISCUSSED DISCHARGE MEDICATION NEEDS. SHEREEN REPORTS THAT THEY CALLED THE [facility] WHO WILL NOT ASSIST PT WITH ANY MEDICATIONS, NOT EVEN METFORMIN. [facility] REPOR[facility] THAT PT WILL NEED A PENITENTIARY PLAN TO GET HER DIABETES MEDICATION THEY ARE NOT A MEDICAL FACILITY. [facility] HAS CALLED ALL LOCAL RESOURCES AND IS NOT ABLE TO FIND ANY ASSISTANCE FOR PT'S MEDICATION AND SUPPLIES. PT CAN RETURN IF SHE CAN GET HER MEDICATION AND SUPPLIES. 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 THEODORA CALLED AND SPOKE TO WASH DRILLER HELPER ERIKA OF CASE MANAGEMENT, RELAYED ABOVE INFORMATION. CM WASH DRILLER HELPER ERIKA WAS ABLE TO OBTAIN INSULIN FROM [facility]; CM CALLED AND SPOKE TO [facility] [place], , [employer]ERS QUOTES FOR SUPPLIES: METER $19.99 (COMES WITH LANCET DEVICE), 100 TEST STRIPS $19.98, 100 LANCETS $3.99, 100 SYRINGES $21.99, METFORMIN $30.00. CM SPOKE TO WASH DRILLER HELPER ERIKA WHO APPROVED PURCHASE. CM SPOKE TO JACK STEVE WHO PROVIDED PRESCRIPTIONS. CM PROVIDED PHARMACY INFORMATION TO PT AND INSTRUCTIONS TO DRY WALL INSTALLER HER MEDICATION AND SUPPLIES. CM CALLED AND NOTIFIED SHEREEN WHO WILL TRY TO FIND TRANSPORT FOR NOW AND TAKE PT TO THE PHARMACY AND THEN BACK TO [facility]. BEDSIDE NURSE NOTIFIED. LYNDA SONG, CASE MANAGEMENT DCP- Discharge Planning Updated by [id number]: Carla Zuñiga on 09/05/19 1:[address] LATE ENTRY 09/04/19 @ 1215 Patient Name: SHELLY MERINO Admission Status: ER Accout number: [id number] Admission Date: 09-03-2019 : 1980 Admission Diagnosis:TYPE 2 DIABETES MELLITUS WITH KETOACIDOSIS WITHOUT COMA Attending: REJI LOPEZ Current LOS: 2 Anticipated DC Date: Planned Disposition: Home or Self Care Primary Insurance: UNINSURED DISCOUNT PLAN Discharge Planning Comments: CM met with patient to complete initial dc planning assessment. CM educated patient on the CM role and verbal consent given by patient to complete assessment. Patient lives at home a long-term ([facility]) where she is independent with her care. At discharge patient plans to return to long-term and feels this is a safe discharge. CM discussed availability of home health, rehab services, and medical equipment. CM discussed with patient regarding diabetic testing supplies and insulin. Patient states that she doesn't have any money to get supplies or insulin with. CM called [facility] and spoke with Shereen the patients Counselor. Shereen stated they have reached out to [facility] and CM and all they was able to obtain was Metaformin for patients blood sugar. CM spoke with patient regarding Medicaid she stated that it is suppose to start Sep 21. Patient also stated that is suppose to start getting her disability in October. THEODORA spoke with Walter in [employer] and he stated that the patient needs to bring in an award letter from Medicaid and Medicare/ Disability. CM will continue to follow and will assist as needed with dc plans/needs. Envelope Stamping Machine Operator: Carla Zuñiga DCPIA - Discharge Planning Initial Assessment Updated by [email or web address]: Carla Zuñiga on 09/05/19 1:46 pm * Is the patient Alert and Oriented? Yes * How many steps to enter\exit or inside your home? * PCP NO PCP * [facility] * Preadmission Environment Assisted * Facility Name [facility] * ADLs Independent * Equipment None * List name and contact numbers for known caregivers / representatives who currently or will assist patient after discharge: [facility] [phone] * Verbal permission to speak to the caregivers and representatives has been obtained from the patient. Yes * Community resources currently utilized None * Additional services required to return to the preadmission environment? No * Can the patient safely return to the preadmission environment? Yes * Has this patient been hospitalized within the prior 30 days at any hospital? No Last DP export: 09/08/19 3:33 Patient Name: SHELLY MERINO Page [id number] at 1640 All edits/amendments must be made on the electronic document DICTATION DATE: 09/08/19 1640 OUTSIDE PLANT FIELD ENGINEER: GIDEON 09/08/19 1640 RPT#: [id number] DC DATE: STATUS: ADM IN [facility] [address] [place] [address] END OF REPORT
--- NOTE | 2019-09-08 17:37 | NUR ---
ALERT AND ORIENTED X4. LAYING IN BED. DC LT UPPER ARM MIDLINE TIP INTACT. PRESSURE HELD PER PROTOCOL. DISCHARGE INSTRUCTIONS FOR INSULIN INJECTIONS PROVIDED. DEMONSTRATES UNDERSTANDING. DISCHARGE PAPERS SIGNED ON CHART. ESCORT TO RIDE VIA WHEELCHAIR. REMAINS FREE FROM INJURY.
== END 2019-09-08 17:39 | disposition home or self-care (01) | DRG 638 ==
LOC: D.ER 15:05 → D.ICU 20:33 → D.M2 20:33
PROVIDERS: Family Medicine; ADMIT Internal Medicine Nephrology; ATTEND Internal Medicine Nephrology
PROC: 05HY33Z Insertion of Infusion Device into Upper Vein, Percutaneous Approach (ICD-10-PCS; principal; 2019-09-04)
DX: E11.10 Type 2 diabetes mellitus with ketoacidosis without coma (principal); N17.9 Acute kidney failure, unspecified; Z79.4 Long term (current) use of insulin; I10 Essential (primary) hypertension; D72.829 Elevated white blood cell count, unspecified; D50.9 Iron deficiency anemia, unspecified

== ENCOUNTER 2019-09-27 13:14 | Emergency (ER) | payer MEDICARE ==
[~2019-09-27] VITALS: Ht 154.9 cm; Wt 100.0 kg
[2019-09-27 13:18] VITALS: Ht 154.9 cm; Wt 100.0 kg
[2019-09-27] MEDS ORDERED: HUMULIN 70100 UNIT/1 SC (14:01)
[2019-09-27 14:14] VITALS: BP 136/78
== END 2019-09-27 14:15 | disposition home or self-care (01) ==
LOC: D.ER 13:14
DX: Z76.0 Encounter for issue of repeat prescription (principal); E11.9 Type 2 diabetes mellitus without complications; Z79.4 Long term (current) use of insulin; Z79.84 Long term (current) use of oral hypoglycemic drugs; I10 Essential (primary) hypertension; Z72.0 Tobacco use

== ENCOUNTER 2020-02-23 08:07 | Emergency (ER) | payer MEDICARE ==
[~2020-02-23] VITALS: Ht 154.9 cm; Wt 93.2 kg
[2020-02-23 08:21] VITALS: Ht 154.9 cm; Wt 93.2 kg
[2020-02-23 09:26] LABS: BASOPHILS 0.2 % (0-2); HEMATOCRIT 35.6 % (36.0-48.0); HEMOGLOBIN 10.8 g/dL (12-16); IMMATURE GRANULOCYTES 0.3 % (0-5); LYMPHOCYTES 11.6 % (15-50); MCH 21.2 pg (26.0-34.0); MCHC 30.3 g/dL (31.0-37.0); MCV 69.8 fL (80.0-100.0); MEAN PLATELET VOLUME 9.1 fL (7.4-10.4); MONOCYTES 4.1 % (2-11); NEUTROPHILS 79.8 % (40-80); PLATELET COUNT 354 10x3/uL (130-400); RDW 20.3 % (11.5-14.5); WBC 13.1 10x3/uL (4.8-10.8)
[2020-02-23 09:30] LABS: CALC OSMOLALITY 278 mosm/kg (275-300); CALCIUM 9.3 mg/dL (8.5-10.1); CARBON DIOXIDE 24.8 mmol/L (21.0-32.0); CHLORIDE - SERUM 98 mmol/L (98-107); CREATININE - SERUM 0.8 mg/dL (0.6-1.3); POTASSIUM - SERUM 3.6 mmol/L (3.5-5.1); SODIUM 134 mmol/L (136-145); UREA NITROGEN 8 mg/dL (7-18); eGFR NON AFRICAN AMERICAN 85 mL/min (90-120)
[2020-02-23 09:34] LABS: GLUCOSE 334 mg/dL (74-106)
[2020-02-23 09:36] LABS: ALKALINE PHOSPHATASE 191 U/L (30-120); ALT (SGPT) 32 U/L (10-68); AMYLASE - SERUM 64 U/L (25-115); BILIRUBIN - TOTAL 0.51 mg/dL (0.2-1.3); PROTEIN - SERUM 8.3 g/dL (6.4-8.2)
[2020-02-23 09:39] LABS: LIPASE 37 U/L (73-393)
[2020-02-23 09:53] LABS: BACTERIA FEW /hpf (NEGATIVE); BILIRUBIN NEGATIVE (NEGATIVE); EPITHELIAL CELLS RARE /hpf (0-5); GLUCOSE 500 mg/dL (NEGATIVE); KETONE SMALL mg/dL (NEGATIVE); NITRITE NEGATIVE (NEGATIVE); RED CELLS - URINE OCC /hpf (0-5); SPECIFIC GRAVITY 1.015 (1.005-1.020); UROBILINOGEN NORMAL (NORMAL); WHITE CELLS - URINE RARE /hpf (NEGATIVE)
[2020-02-23] MEDS ORDERED: PROTONIX40 MG PO (11:00)
[2020-02-23 11:19] VITALS: BP 137/80
[2020-02-23 12:01] LABS: APTT 27.4 SECONDS (22.8-39.4); INR 0.94 (0.85-1.17); PROTIME 12.6 SECONDS (11.6-15.0)
== END 2020-02-23 11:19 | disposition home or self-care (01) ==
LOC: D.ER 08:07
PROVIDERS: Family Medicine
DX: R11.2 Nausea with vomiting, unspecified (principal); E11.65 Type 2 diabetes mellitus with hyperglycemia; I10 Essential (primary) hypertension; K21.9 Gastro-esophageal reflux disease without esophagitis; Z72.0 Tobacco use; Z79.4 Long term (current) use of insulin; Z79.84 Long term (current) use of oral hypoglycemic drugs

== ENCOUNTER 2020-03-05 09:44 | Emergency (ER) | payer MEDICARE ==
[~2020-03-05] VITALS: Ht 154.9 cm; Wt 127.7 kg
[~2020-03-05 09:44] MED LIST changes: +PROTONIX40 MG PO
[2020-03-05 09:47] VITALS: Ht 154.9 cm; Wt 127.7 kg
[2020-03-05 10:15] LABS: BASOPHILS 0.3 % (0-2); EOSINOPHILS 8.8 % (0-7); HEMOGLOBIN 11.1 g/dL (12-16); IMMATURE GRANULOCYTES 0.5 % (0-5); LYMPHOCYTES 22.7 % (15-50); MCH 21.1 pg (26.0-34.0); MCV 70.2 fL (80.0-100.0); MEAN PLATELET VOLUME 9.5 fL (7.4-10.4); MONOCYTES 4.9 % (2-11); NEUTROPHILS 62.8 % (40-80); PLATELET COUNT 362 10x3/uL (130-400); RBC 5.27 10x6/uL (4.00-5.40); RDW 19.5 % (11.5-14.5); WBC 7.3 10x3/uL (4.8-10.8)
[2020-03-05 10:34] LABS: CALC OSMOLALITY 281 mosm/kg (275-300); CALCIUM 9.6 mg/dL (8.5-10.1); CARBON DIOXIDE 22.5 mmol/L (21.0-32.0); CHLORIDE - SERUM 99 mmol/L (98-107); CREATININE - SERUM 0.7 mg/dL (0.6-1.3); GLUCOSE 371 mg/dL (74-106); POTASSIUM - SERUM 4.1 mmol/L (3.5-5.1); SODIUM 133 mmol/L (136-145); UREA NITROGEN 15 mg/dL (7-18); eGFR NON AFRICAN AMERICAN > 90 mL/min (90-120)
[2020-03-05 10:41] LABS: ALBUMIN 4.1 g/dL (3.4-5.0); ALKALINE PHOSPHATASE 287 U/L (30-120); ALT (SGPT) 35 U/L (10-68); BILIRUBIN - TOTAL 0.32 mg/dL (0.2-1.3); MAGNESIUM - SERUM 1.9 mg/dL (1.8-2.4)
[2020-03-05 10:41] LABS: BACTERIA MODERATE /hpf (NEGATIVE); BILIRUBIN NEGATIVE (NEGATIVE); EPITHELIAL CELLS 0-5 /hpf (0-5); GLUCOSE 1000 mg/dL (NEGATIVE); KETONE MODERATE mg/dL (NEGATIVE); NITRITE NEGATIVE (NEGATIVE); RED CELLS - URINE >50 /hpf (0-5); SPECIFIC GRAVITY 1.015 (1.005-1.020); UROBILINOGEN NORMAL (NORMAL); WHITE CELLS - URINE OCC /hpf (NEGATIVE)
[2020-03-05 11:27] VITALS: BP 138/89
== END 2020-03-05 11:28 | disposition home or self-care (01) ==
LOC: D.ER 09:44
PROVIDERS: Family Medicine
DX: E11.65 Type 2 diabetes mellitus with hyperglycemia (principal); Z79.4 Long term (current) use of insulin; I10 Essential (primary) hypertension; K21.9 Gastro-esophageal reflux disease without esophagitis